=== PATIENT | female | born 1965 | race Caucasian/White ===

== ENCOUNTER 2016-11-19 12:51 | Inpatient (IN) | payer MEDICAID ==
[~2016-11-19] VITALS: Ht 165.1 cm; Wt 112.8 kg
[~2016-11-19 12:51] MED LIST: FLUO40CA2 PO; IBUP800T PO; NAPROXEN PO; OXYC-302 PO; PANT40TA5 PO; PRAV40TA2 PO; SENN1TAB94 PO; TIOT18CA INH
[2016-11-19] MEDS ORDERED: SODIUM CHLORIDE 0.9% 1,000 ML IV ONE (13:33)
[2016-11-19] MEDS ORDERED: ASPIRIN 81 MG TABLET CHEW ONE (13:47)
[2016-11-19] MEDS ORDERED: NITROGLYCERIN SINGLE TAB 0.4 MG SL ONE (13:47)
[2016-11-19] MEDS ORDERED: SODIUM CHLORIDE 0.9% 1,000ML IVBOLUS ONE (14:00)
[2016-11-19] MEDS ORDERED: NITROGLYCERIN SINGLE TAB 0.4 MG SL PRN (14:00)
[2016-11-19] MEDS ORDERED: ASPIRIN 81 MG TABLET CHEW PO ONE (14:00)
[2016-11-19] MEDS ORDERED: SODIUM CHLORIDE FLUSH 10ML SYR IVF ONE (14:00)
[2016-11-19 14:35] LABS: HEMOGLOBIN 13.6 g/dL (11.7-16.4)
[2016-11-19 14:45] LABS: BLOOD UREA NITROGEN 12 mg/dL (7-18)
[2016-11-19] MEDS ORDERED: SODIUM CHLORIDE FLUSH 10ML SYR IVF PRN (15:30)
[2016-11-19] MEDS ORDERED: HYDROcodone/APAP 5/325 TABLET PO PRN (16:30)
[2016-11-19] MEDS ORDERED: ACETAMINOPHEN 325 MG TABLET PO PRN (16:30)
[2016-11-19] MEDS ORDERED: MORPHINE SULFATE 4 MG/ML, 1ML IVPush PRN (16:30)
[2016-11-19] MEDS ORDERED: ONDANSETRON 2MG/ML, 2ML IVP PRN (16:30)
[2016-11-19 17:26] LABS: IS PT STATUS REG ER OR PRE ER? YES
[2016-11-19 19:13] VITALS: BP 101/66
[2016-11-19] MEDS ORDERED: ENOXAPARIN 40 MG/0.4 ML SQ SCH (19:30)
[2016-11-19] MEDS ORDERED: CEFTRIAXONE PMX 1GM/50ML 50 ML IV SCH (19:30)
[2016-11-19] MEDS ORDERED: NITROGLYCERIN 0.4 MG BOTTLE (25 TABS) SL PRN (20:00)
[2016-11-19] MEDS ORDERED: NITROGLYCERIN 0.4 MG/SPRAY SL PRN (20:00)
[2016-11-19] MEDS ORDERED: PRAVASTATIN 40 MG TABLET PO SCH (21:00)
[2016-11-19 22:08] VITALS: BP 101/66
[2016-11-19 22:55] LABS: IS PT STATUS REG ER OR PRE ER? NO
[2016-11-20 01:07] VITALS: BP 101/64
[2016-11-20 04:55] LABS: HEMOGLOBIN 13.2 g/dL (11.7-16.4)
[2016-11-20 05:24] LABS: ASPARTATE AMINO TRANSFERASE 12 U/L (15-37); BLOOD UREA NITROGEN 16 mg/dL (7-18)
[2016-11-20] MEDS ORDERED: REGADENOSON 0.4 MG/5 ML SYRINGE ONE (07:59)
[2016-11-20] MEDS ORDERED: FLUOXETINE 20 MG CAPSULE PO SCH (09:00)
[2016-11-20] MEDS ORDERED: FLU VACC QS2016-17 (36MOS+)UP/PF 0.5 ML IM-VACC ONE (12:00)
[2016-11-20] MEDS ORDERED: OMEP-110 PO (15:37)
[2016-11-20] MEDS ORDERED: AZIT500T4 PO (15:37)
[2016-11-20 15:53] VITALS: BP 102/66
== END 2016-11-20 17:27 | disposition home or self-care (01) | DRG 190 ==
LOC: ED 14:15 → EDIP 15:11 → 5SO 19:01
PROVIDERS: ADMIT Hospitalist; ATTEND Internal Medicine
DX: J44.0 Chronic obstructive pulmonary disease with (acute) lower respiratory infection (principal); J18.9 Pneumonia, unspecified organism; E78.5 Hyperlipidemia, unspecified; K21.9 Gastro-esophageal reflux disease without esophagitis; F32.9 Major depressive disorder, single episode, unspecified; G89.29 Other chronic pain; F17.210 Nicotine dependence, cigarettes, uncomplicated; M25.561 Pain in right knee; G43.909 Migraine, unspecified, not intractable, without status migrainosus; Z90.710 Acquired absence of both cervix and uterus; Z98.890 Other specified postprocedural states; Z82.5 Family history of asthma and other chronic lower respiratory diseases; Z80.1 Family history of malignant neoplasm of trachea, bronchus and lung; Z82.49 Family history of ischemic heart disease and other diseases of the circulatory system; Z23 Encounter for immunization; Z79.899 Other long term (current) drug therapy
CPT/HCPCS: 36415; 71010; 78452; 80048; 80053; 80061; 82040; 83880; 84443; 84484; 85025; 85379; 85610; 85730; 90686; 93005; 93017; 96360; 96361; J0696; J1650; J2785; A9502; C9898; J7030

== ENCOUNTER 2017-06-28 18:43 | Emergency (ER) | payer MEDICAID ==
[~2017-06-28] VITALS: Ht 165.1 cm; Wt 109.5 kg
[~2017-06-28 18:43] MED LIST changes: +AZIT500T5 PO; +IBUP-1223 PO; -IBUP800T PO; +OMEP-110 PO
[2017-06-28 18:48] VITALS: BP 121/81
[2017-06-28] MEDS ORDERED: ONDANSETRON ODT 4 MG PO ONE (20:00)
[2017-06-28] MEDS ORDERED: HYDROcodone/APAP 5/325 TABLET PO ONE ×2 (20:00→21:00)
[2017-06-28] MEDS ORDERED: ONDANSETRON ODT 4 MG ONE (20:02)
[2017-06-28] MEDS ORDERED: HYDROcodone/APAP 5/325 TABLET ONE ×2 (20:02→21:10)
[2017-06-28] MEDS ORDERED: METHOCARBAMOL 750 MG TABLET PO ONE (21:00)
[2017-06-28] MEDS ORDERED: METHOCARBAMOL 750 MG TABLET ONE (21:09)
== END 2017-06-28 23:24 | disposition home or self-care (01) ==
LOC: ED 23:19
DX: M47.892 Other spondylosis, cervical region (principal); J44.9 Chronic obstructive pulmonary disease, unspecified; E78.5 Hyperlipidemia, unspecified; F32.9 Major depressive disorder, single episode, unspecified; Z87.891 Personal history of nicotine dependence
CPT/HCPCS: 93971; 99284; J7512; Q0162

== ENCOUNTER 2017-07-24 16:44 | Emergency (ER) | payer MEDICAID ==
[~2017-07-24] VITALS: Ht 165.1 cm; Wt 107.4 kg
[2017-07-24 17:07] VITALS: BP 111/38
== END 2017-07-24 17:26 | disposition home or self-care (01) ==
LOC: ED 17:20
DX: J06.9 Acute upper respiratory infection, unspecified (principal); J44.9 Chronic obstructive pulmonary disease, unspecified
CPT/HCPCS: 99283